=== PATIENT | female | born 1995 | race Two or more races ===

== ENCOUNTER 2025-03-05 10:25 | Emergency (ER) | payer BC, OTHER ==
[~2025-03-05] VITALS: Ht 165.1 cm; Wt 60.4 kg
[2025-03-05 10:27] VITALS: TEMP 97.5
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
[2025-03-05 11:26] VITALS: BP 111/77; PULSE 60; RESP 18; O2SAT 99
--- NOTE | 2025-03-05 11:27 | DVH ---
CLINICAL INDICATION: trauma TECHNIQUE: 3 radiographic views of the left hand were obtained. Comparison: None FINDINGS/IMPRESSION: Soft tissue swelling over the proximal interphalangeal joint of the left 3rd finger is noted. Mildly displaced intra-articular fracture middle phalanx left 3rd finger.
== END 2025-03-05 12:15 | disposition home or self-care (01) ==
LOC: ER 10:25
DX: S62.623A Displaced fracture of middle phalanx of left middle finger, initial encounter for closed fracture (principal); F10.90 Alcohol use, unspecified, uncomplicated; W19.XXXA Unspecified fall, initial encounter; Y93.89 Activity, other specified; Y92.89 Other specified places as the place of occurrence of the external cause; Y99.8 Other external cause status; Y90.9 Presence of alcohol in blood, level not specified
CPT/HCPCS: 73140